=== PATIENT | female | born 1940 | race Caucasian/White ===

== ENCOUNTER → 2016-12-04 | Outpatient (CLI) | payer MEDICARE, OTHER ==
[~2016-12-04] MED LIST: DULO30CA2 PO; FISH OIL/SALMO500 MG PO; FISH1CAP51 PO; HYDR-3965 PO; Hydrocodone Bit/Acetaminophen PO; LIDOP TD; LIDOP TP; MELO-273 PO; MELO7.5T12 PO; MULT-1239 PO; PREM125 PO; PREM3 PO; PREMC VG; QUES4 PO; SIMV40 PO; Sulfamethoxazole/Trimethoprim PO; VITAD1000 PO; ZOLP10 PO
[2016-12-04 15:26] LABS: APPEARANCE,URINE CLEAR (CLEAR); GLUCOSE, URINE (UA) >=1000 mg/dL (NEGATIVE); KETONES,URINE NEGATIVE (NEGATIVE); LEUKOCYTE ESTERASE ,URINE TRACE (NEGATIVE); OCCULT BLOOD,URINE NEGATIVE (NEGATIVE); PROTEIN,URINE NEGATIVE (NEGATIVE)
[2016-12-04 15:58] LABS: ADD UA MICROSCOPIC YES
[2016-12-04 16:23] LABS: RBC,URINE None Seen /HPF (0-2); SQUAMOUS EPITHELIAL CELL,UR Few /LPF (None Seen); WBC,URINE 51-100 /HPF (0-5)
== END | disposition home or self-care (01) ==
LOC: LABPV 14:18
PROVIDERS: ATTEND Physical Medicine & Rehabilitation
DX: R39.81 Functional urinary incontinence (principal)
CPT/HCPCS: 87086